=== PATIENT | female | born 1955 | race Caucasian/White ===

== ENCOUNTER 2023-07-06 21:57 | Emergency (ER) | payer MEDICARE ==
[2023-07-06 22:26] VITALS: BP 147/83; PULSE 93
[2023-07-06] MEDS ORDERED: methylPREDNISolone Sodium Succinate 125 MG/2 ML SDV IM ONE (22:37)
== END 2023-07-06 23:00 | disposition home or self-care (01) ==
LOC: FB.ED 21:57
DX: L50.9 Urticaria, unspecified (principal); E78.00 Pure hypercholesterolemia, unspecified; I10 Essential (primary) hypertension; Z79.82 Long term (current) use of aspirin; Z79.899 Other long term (current) drug therapy; Z88.5 Allergy status to narcotic agent
CPT/HCPCS: 96372; 99282; J2930